=== PATIENT | female | born 1960 | race Caucasian/White ===

== ENCOUNTER 2020-11-11 16:48 | Emergency (ER) | payer BC ==
[~2020-11-11] VITALS: Ht 170.2 cm; Wt 97.5 kg
--- OUTSIDE RECORDS SUMMARY | 2020-11-11 16:52 | XMS ---
PreManage Notification: CHESTER RAMOS Security Tableau Developer Events No recent Security Events currently on file [facility] There are no care providers on record at this time. Naila has no Care Guidelines for this patient. Joe VISIT COUNT (12 MO.) 1 TAO Chavez TOTAL 1 NOTE: Visits indicate total known visits. ED/C VISIT TRACKING (12 MO.) 11/11/2020 16:49 TA[facility] Gaspar OR TYPE: Emergency COMPLAINT: - CHEST PAIN, DIFFICULTY BREATHING INPATIENT VISIT TRACKING (12 MO.) No inpatient visits to display in this time frame [id number]
[2020-11-11] MEDS ORDERED: B12 ACTIVE1000 MCG PO (17:05)
[2020-11-11] MEDS ORDERED: MULTI VITAMIN1 EACH PO (17:05)
[2020-11-11] MEDS ORDERED: VITAMIN D21250 MCG PO (17:05)
[2020-11-11] MEDS ORDERED: LEXAPRO20 MG PO (17:05)
--- NOTE | 2020-11-12 13:01 | EKG ---
[facility] [address] [facility] [place], [place] [address] Signed Normal sinus rhythm Normal ECG No previous ECGs available Confirmed by LELE HUTSON DO ([id number]) on 11/12/2020 1:01:15 PM Electronically Signed By: LELE HUTSON DO 11/12/20 1301 PATIENT NAME: CHESTER RAMOS Electrocardiogram DATE OF : 60 PHYSICIAN: LELE HUTSON DO REPORT #: [id number] REPORT IS CONFIDENTIAL AND NOT TO BE RELEASED WITHOUT AUTHORIZATION
== END 2020-11-11 20:56 | disposition home or self-care (01) ==
LOC: ED 16:48
DX: R07.2 Precordial pain (principal); Z88.2 Allergy status to sulfonamides; Z88.1 Allergy status to other antibiotic agents; Z79.899 Other long term (current) drug therapy
CPT/HCPCS: 71045; 80053; 83735; 84484; 85025; 93005; 93010; 99285-25